=== PATIENT | male | born 1990 | race Caucasian/White ===

== ENCOUNTER 2017-07-06 12:51 | Emergency (ER) | payer OTHER ==
[~2017-07-06] VITALS: Ht 185.4 cm; Wt 77.1 kg
[~2017-07-06 12:51] MED LIST: ALBU90OI INH; ALBU90OI6 INH; AZIT250 PO; BENZ100A PO; Bactrim Ds Tab1 EACH PO; CLON.1 PO; DOXY100 PO; HYDACE5 PO; IBUP800 PO; LORA10ER PO; MOME220I INH; NAPR500 PO; RXCLIN PO; SULTRIDS PO
[2017-07-06] MEDS ORDERED: BUPR100 PO (13:00)
[2017-07-06] MEDS ORDERED: MIRT30 PO (13:00)
[2017-07-06] MEDS ORDERED: Veetids 500500 MG PO (13:42)
[2017-07-06] MEDS ORDERED: IBUP800 PO (13:42)
[2018-01-04] MEDS ORDERED: MIRT15 PO (17:47)
== END 2017-07-06 13:53 | disposition home or self-care (01) ==
LOC: ER 12:51
DX: K04.7 Periapical abscess without sinus (principal); Z79.899 Other long term (current) drug therapy; F17.200 Nicotine dependence, unspecified, uncomplicated
CPT/HCPCS: 99282

== ENCOUNTER 2017-07-09 03:18 | Emergency (ER) | payer OTHER ==
[~2017-07-09] VITALS: Ht 185.4 cm; Wt 77.1 kg
[~2017-07-09 03:18] MED LIST changes: +BUPR100 PO; +MIRT30 PO; +Veetids 500500 MG PO
[2018-01-04] MEDS ORDERED: MIRT15 PO (17:47)
== END 2017-07-09 07:56 | disposition home or self-care (01) ==
LOC: ER 03:18
DX: S02.2XXA Fracture of nasal bones, initial encounter for closed fracture (principal); S00.12XA Contusion of left eyelid and periocular area, initial encounter; S00.81XA Abrasion of other part of head, initial encounter; S09.90XA Unspecified injury of head, initial encounter; F17.200 Nicotine dependence, unspecified, uncomplicated; Y08.89XA Assault by other specified means, initial encounter
CPT/HCPCS: 70450; 76380; 99284

== ENCOUNTER 2017-11-02 13:14 | Emergency (ER) | payer MEDICAID ==
[~2017-11-02] VITALS: Ht 185.4 cm; Wt 81.7 kg
[2017-11-02] MEDS ORDERED: Bactrim Ds Tab1 EACH PO (13:37)
== END 2017-11-02 13:40 | disposition home or self-care (01) ==
LOC: ER 13:14
DX: L03.115 Cellulitis of right lower limb (principal); Z88.0 Allergy status to penicillin; F17.210 Nicotine dependence, cigarettes, uncomplicated
CPT/HCPCS: 99282

== ENCOUNTER 2020-05-13 06:49 | Emergency (ER) | payer OTHER ==
[~2020-05-13] VITALS: Ht 185.4 cm; Wt 81.7 kg
[~2020-05-13 06:49] MED LIST changes: +Cephalexin500 MG PO; +IBUP600 PO; +MIRT15 PO
[2020-05-13] MEDS ORDERED: DOXY100 PO (07:28)
[2020-05-13] MEDS ORDERED: Bactrim Ds Tab1 EACH PO (07:28)
[2020-05-13] MEDS ORDERED: MUPIROCIN15 GM TOP (07:28)
== END 2020-05-13 07:35 | disposition home or self-care (01) ==
LOC: ER 06:49
DX: L03.114 Cellulitis of left upper limb (principal); F17.200 Nicotine dependence, unspecified, uncomplicated; Z88.0 Allergy status to penicillin
CPT/HCPCS: 99283; A9270; A9270-GY

== ENCOUNTER 2020-06-25 18:32 | Emergency (ER) | payer OTHER ==
[~2020-06-25] VITALS: Ht 182.9 cm; Wt 79.4 kg
[~2020-06-25 18:32] MED LIST changes: +MUPIROCIN15 GM TOP
[2020-10-06] MEDS ORDERED: Cleocin HCl300 MG PO (22:20)
== END 2020-06-25 20:40 | disposition home or self-care (01) ==
LOC: ER 18:32
DX: S00.83XA Contusion of other part of head, initial encounter (principal); K02.9 Dental caries, unspecified; F17.210 Nicotine dependence, cigarettes, uncomplicated; Z88.0 Allergy status to penicillin; W21.11XA Struck by baseball bat, initial encounter
CPT/HCPCS: 70110; 99283-25

== ENCOUNTER 2020-12-09 00:14 | Emergency (ER) | payer OTHER ==
[~2020-12-09] VITALS: Ht 185.4 cm; Wt 81.7 kg
[~2020-12-09 00:14] MED LIST changes: +Cleocin HCl300 MG PO
== END 2020-12-09 03:45 | disposition left against medical advice (07) ==
LOC: ER 00:14
DX: S81.812A Laceration without foreign body, left lower leg, initial encounter (principal); F17.210 Nicotine dependence, cigarettes, uncomplicated; Z88.0 Allergy status to penicillin; Z79.899 Other long term (current) drug therapy; W25.XXXA Contact with sharp glass, initial encounter
CPT/HCPCS: 12002; 99282; A9270

== ENCOUNTER 2020-12-14 04:55 | Emergency (ER) | payer OTHER ==
[~2020-12-14] VITALS: Ht 185.4 cm; Wt 81.7 kg
[2020-12-14] MEDS ORDERED: Bactrim Ds Tab1 EACH PO (07:05)
[2020-12-14] MEDS ORDERED: Mupirocin22 GM TOP (07:05)
== END 2020-12-14 07:50 | disposition home or self-care (01) ==
LOC: ER 04:55
DX: L03.116 Cellulitis of left lower limb (principal); S81.812D Laceration without foreign body, left lower leg, subsequent encounter; F17.210 Nicotine dependence, cigarettes, uncomplicated; W45.8XXD Other foreign body or object entering through skin, subsequent encounter
CPT/HCPCS: 99281; A9270

== ENCOUNTER 2021-01-30 21:40 | Emergency (ER) | payer OTHER ==
[~2021-01-30 21:40] MED LIST changes: +Mupirocin22 GM TOP
== END 2021-01-30 22:23 | disposition left against medical advice (07) ==
LOC: ER 21:40
DX: Z53.21 Procedure and treatment not carried out due to patient leaving prior to being seen by health care provider (principal)

== ENCOUNTER 2023-02-06 19:06 | Emergency (ER) | payer OTHER ==
[~2023-02-06] VITALS: Ht 185.4 cm; Wt 79.4 kg
[2023-02-06 19:20] VITALS: BP 144/83
== END 2023-02-06 20:34 | disposition home or self-care (01) ==
LOC: ER 19:06
DX: S50.01XA Contusion of right elbow, initial encounter (principal); S40.211A Abrasion of right shoulder, initial encounter; V29.99XA Rider (driver) (passenger) of other motorcycle injured in unspecified traffic accident, initial encounter; F17.210 Nicotine dependence, cigarettes, uncomplicated; Z88.0 Allergy status to penicillin
CPT/HCPCS: 73080; 99283-25; A9270

== ENCOUNTER 2023-02-18 11:39 | Emergency (ER) | payer OTHER ==
[~2023-02-18] VITALS: Ht 185.4 cm; Wt 72.6 kg
[2023-02-18 13:25] VITALS: BP 140/90
[2023-02-18] MEDS ORDERED: DOXY100 PO (13:38)
== END 2023-02-18 13:45 | disposition home or self-care (01) ==
LOC: ER 11:39
DX: L03.115 Cellulitis of right lower limb (principal); L03.114 Cellulitis of left upper limb; B95.62 Methicillin resistant Staphylococcus aureus infection as the cause of diseases classified elsewhere; Z88.0 Allergy status to penicillin; F17.210 Nicotine dependence, cigarettes, uncomplicated
CPT/HCPCS: 99283